=== PATIENT | female | born 1990 | race Caucasian/White ===

== ENCOUNTER → 2020-05-30 09:52 | Outpatient (CLI) | payer OTHER, SELFPAY ==
[2020-05-30 10:21] LABS: COVID19 -Nasal RAPID Negative (Negative)
== END ==
PROVIDERS: Visit Provider Student in an Organized Health Care Education/Training Program
DX: J02.9 Acute pharyngitis, unspecified (principal); Z20.822 Contact with and (suspected) exposure to COVID-19
CPT/HCPCS: 87070; 87635

== ENCOUNTER → 2020-12-05 14:07 | Outpatient (CLI) | payer OTHER, SELFPAY ==
--- NOTE | 2020-12-05 14:11 | DI.US.S_ITS ---
PROCEDURE: US RENAL COMPLETE INDICATIONS: DYSURIA. ASSESS FOR URINARY TRACT STONE. TECHNIQUE: Real-time scanning was performed of the kidneys and bladder, with image documentation. COMPARISON: None. FINDINGS: Kidneys: Kidneys are normal in size. Right kidney measures 10.7 cm long; left kidney measures 11.4 cm long. Right renal cortical thickness is 1.6 cm; left renal cortical thickness is 1.6 cm. Renal cortical echotexture is normal. No hydronephrosis or nephrolithiasis. No suspicious solid mass lesions. Both kidneys demonstrate increased vascularity. Bladder: Pre-void bladder volume is 34 mL. Post-void residual is 0 mL. Pre-void images demonstrate no intraluminal masses or stones. On pre-void images, the right ureteral jet is noted with color Doppler interrogation. (Of note, ureteral jets may not be detectable in up to 25% of cases due to insufficient differences in specific gravity between ureteral and bladder urine). Miscellaneous: No free pelvic fluid. IMPRESSION: 1. No evidence of obstructive uropathy. 2. Increased vascularity of both kidneys, which is nonspecific but can be seen in the setting of pyelonephritis. Dictated by: Jim Zhou M.D. on 12/05/2020 at 15:09 Approved by: Jim Zhou M.D. on 12/05/2020 at 15:15
== END ==
PROVIDERS: Referring Provider Physician Assistant Medical; Visit Provider Physician Assistant Medical
DX: R30.0 Dysuria (principal)
CPT/HCPCS: 76770